=== PATIENT | female | born 1955 | race Caucasian/White ===

== ENCOUNTER 2019-09-10 15:27 | Outpatient (CLI) | payer MEDICAID, SELFPAY ==
--- NOTE | 2019-09-10 15:33 | XR_ITS ---
WS: [id number] LUMBAR SPINE: 3 VIEWS TECHNIQUE: AP, lateral and L5-S1 spot. HISTORY: Pain in lower back. COMPARISON: 01/08/2013 Very slight LEFT convex curvature of the upper lumbar spine. Vertebral body heights are well-maintain ed. No fractures. Pedicles are all identified. Mild facet joint arthropathy at L5-S1. SI joints are symmetric bilaterally. No soft tissue abnormalities. Prior gastric bypass surgery. Splenic granulomata. XR/XR lumbar spine 2-3V* [id number] IMPRESSION: 1. Very mild LEFT convex curvature of the lumbar spine. 2. No fracture. 3. Mild lumbar spondylosis.
== END 2019-09-10 15:28 | disposition home or self-care (01) ==
LOC: WPI 15:32
PROVIDERS: Family Provider Internal Medicine; PCP Internal Medicine; Referring Provider Internal Medicine; Visit Provider Internal Medicine
DX: M47.896 Other spondylosis, lumbar region (principal); M54.5 Low back pain
CPT/HCPCS: 72100

== ENCOUNTER → 2019-09-11 11:44 | Outpatient (BNVA) | payer MEDICAID, SELFPAY | PROVIDERS: Family Provider Internal Medicine; PCP Internal Medicine; Visit Provider Specialist | DX: G43.711 Chronic migraine without aura, intractable, with status migrainosus (principal) | CPT/HCPCS: 64615; J0585 ==

== ENCOUNTER 2019-09-19 08:34 | Outpatient (CLI) | payer MEDICAID, SELFPAY ==
--- NOTE | 2019-09-19 08:37 | MR_ITS ---
WS: [id number] MRI LUMBAR SPINE NONCONTRAST TECHNIQUE: Sagittal T1, T2 and STIR imaging. Axial T1 and T2 imaging. CLINICAL INFORMATION: DEGENERATIVE DISC DISEASE LUMBOSACRAL SPINE W/RADICULOPATHY COMPARISON: None. FINDINGS: Mild lumbar curve. No acute compression. Mild disc bulging L3-L4 and L4-L5. Endplate degenerative ruben nges L4-L5. L1-L2: Normal. L2-L3: Mild annular bulging. Mild facet arthropathy. Small left foraminal protrusion with mild left f oraminal narrowing. Right foramen is patent. L3-L4: Mild annular bulging with mild to moderate facet arthropathy. Spinal canal and foramen are pat ent. L4-L5: Mild disc bulging with narrowing of the left subarticular recess. Encroachment on traversing l eft L5 nerve root. Mild left and no significant right foraminal narrowing. Moderate facet arthropathy . L5-S1: Mild disc bulging with slight effacement of ventral thecal sac. Moderate facet arthropathy. Sp inal canal and foramen are patent. Visualized pelvic bony structures: Normal. Paravertebral soft tissues: Normal. MR/MR lumbar spine wo con* [id number] IMPRESSION: 1. Mild lumbar curve. No acute compression. 2. Mild disc bulging L4-5 with slight narrowing of the left subarticular reces s. Encroachment traversing left L5 nerve root. Mild left foraminal narrowing at this level. 3. Small left foraminal protrusion L2-3 with mild left foraminal narrowing. 4. Mild to moderate facet arthropathy L3-L5.
== END 2019-09-19 08:35 | disposition home or self-care (01) ==
LOC: RADSHAW 08:36
PROVIDERS: Family Provider Internal Medicine; PCP Internal Medicine; Visit Provider Internal Medicine
DX: M51.17 Intervertebral disc disorders with radiculopathy, lumbosacral region (principal); M51.26 Other intervertebral disc displacement, lumbar region
CPT/HCPCS: 72148

== ENCOUNTER → 2020-01-15 11:35 | Outpatient (BNVA) | payer MEDICAID, SELFPAY | PROVIDERS: Family Provider Internal Medicine; PCP Internal Medicine; Visit Provider Specialist | DX: G43.711 Chronic migraine without aura, intractable, with status migrainosus (principal) | CPT/HCPCS: 64615; J0585 ==

== ENCOUNTER 2020-02-13 15:35 | Outpatient (CLI) | payer MEDICAID, SELFPAY ==
--- NOTE | 2020-02-13 | XRR_ITS ---
PROCEDURE INFORMATION: Exam: XR Lumbosacral Spine, 2 or 3 Views Exam date and time: 02/13/2020 3:40 PM Age: 64 years old Clinical indication: Patient HX: Low back pain radiating into right hip; Additional info: Low back pain-please comment on the presence or absence of spinal instability TECHNIQUE: Imaging protocol: XR of the lumbosacral spine, 2 or 3 views. COMPARISON: No relevant prior studies available. FINDINGS: Vertebrae: There is 1st degree spondylolisthesis of the L3-L4 level seen on flexion and neutral positioning. This finding is reduced with extension positioning. Soft tissues: Unremarkable. XR/XR lumbar spine f/e only [id number] IMPRESSION: 1. First degree spondylolisthesis L3-L4 with flexion and neutral position this finding reduced in extension. 2. Otherwise negative examination
== END 2020-02-13 15:36 | disposition home or self-care (01) ==
LOC: RAD 15:37
PROVIDERS: PCP Internal Medicine; Visit Provider Nurse Practitioner
DX: M54.5 Low back pain (principal); M43.16 Spondylolisthesis, lumbar region
CPT/HCPCS: 72120

== ENCOUNTER → 2020-02-17 15:47 | Outpatient (BNVA) | payer MEDICAID, SELFPAY | PROVIDERS: PCP Internal Medicine; Referring Provider Nurse Practitioner Family; Visit Provider Podiatrist Foot & Ankle Surgery | DX: M79.671 Pain in right foot (principal) | CPT/HCPCS: 73630 ==

== ENCOUNTER 2020-03-24 11:04 | Outpatient (CLI) | payer MEDICAID, SELFPAY ==
--- NOTE | 2020-03-24 11:14 | MM_ITS ---
WS: [id number] BILATERAL SCREENING DIGITAL MAMMOGRAM WITH CAD HISTORY: DCIS LEFT BREAST COMPARISON: 01/20/2019, 02/20/2018 and 02/04/2018 Bilateral CC and MLO views submitted. Computer aided detection analyzed. Breast composition: There are scattered areas of fibroglandular density. No suspicious masses, microc alcifications or architectural distortion. Postsurgical site in the LEFT axillary tail is stable. No increase in nodule or calcification. MM/[place] [id number] IMPRESSION: BI-RADS: 2-Benign FOLLOW UP: 1 Year Follow-up
== END 2020-03-24 11:05 | disposition home or self-care (01) ==
LOC: RADSHAW 11:12
PROVIDERS: PCP Internal Medicine; Visit Provider Internal Medicine
DX: D05.12 Intraductal carcinoma in situ of left breast (principal)
CPT/HCPCS: 77066

== ENCOUNTER → 2020-04-08 09:59 | Outpatient (BNVA) | payer MEDICAID, SELFPAY | PROVIDERS: PCP Internal Medicine; Visit Provider Podiatrist Foot & Ankle Surgery | DX: G43.711 Chronic migraine without aura, intractable, with status migrainosus (principal); M77.32 Calcaneal spur, left foot | CPT/HCPCS: 64615; 73630; J0585 ==

== ENCOUNTER 2020-05-13 10:33 | Outpatient (CLI) | payer MEDICAID, SELFPAY ==
--- NOTE | 2020-05-13 10:49 | XR_ITS ---
WS: [id number] RIGHT SHOULDER: 3 VIEW(S) TECHNIQUE: Internal and external rotation with Y view. HISTORY: PAIN IN RIGHT SHOULDER COMPARISON: 06/13/2012 No fracture or dislocation or soft tissue abnormality. Mild narrowing of the AC joint. 5.7 mm osteophyte from the distal inferior clavicle extends towards t he rotator cuff. Increase in size of the osteophytes since the prior study. AC joint is also more stephy row. Benign calcification RIGHT upper lobe. Dense coarse RIGHT paratracheal calcified lymph nodes measure 4.6 x 2.5 cm. XR/XR shoulder RT min 2V* [id number] IMPRESSION: Moderate AC joint arthritis has progressed since 2011. Enlarging 5.7 mm osteophyte along the distal clavicle extends towards the rotat or cuff could be impinging.
== END 2020-05-13 10:34 | disposition home or self-care (01) ==
LOC: RADWPI 10:35
PROVIDERS: PCP Internal Medicine; Visit Provider Internal Medicine
DX: M19.011 Primary osteoarthritis, right shoulder (principal); M25.711 Osteophyte, right shoulder
CPT/HCPCS: 73030

== ENCOUNTER → 2020-06-27 12:19 | Outpatient (BNVA) | payer MEDICAID, SELFPAY | PROVIDERS: PCP Internal Medicine; Visit Provider Emergency Medicine | DX: Z11.59 Encounter for screening for other viral diseases (principal) | CPT/HCPCS: 87635 ==

== ENCOUNTER → 2020-09-09 15:08 | Outpatient (BNVA) | payer MEDICAID, SELFPAY | PROVIDERS: PCP Internal Medicine; Visit Provider Specialist | DX: G43.711 Chronic migraine without aura, intractable, with status migrainosus (principal) | CPT/HCPCS: 64615; J0585 ==

== ENCOUNTER 2020-09-10 14:37 | Emergency (ER) | payer MEDICAID, SELFPAY ==
[2020-09-10 14:44] VITALS: BP 158/100; PULSE 79; RESP 18; TEMP 36.6; O2SAT 98; BMI 29.0
--- NOTE | 2020-09-10 16:01 | W.ED.BACK ---
HPI - Back Pain/Injury General: Chief Complaint: Extremity Injury, Lower Stated Complaint: Lt side pain/ all the way down Time Seen by Provider: 09/10/20 15:41 Source: patient Mode of arrival: ambulatory Limitations: no limitations History of Present Illness: HPI Narrative: Patient is a 65-year-old female who presents to ED today with complaint of left lower back pain. Patient states she has a known history of sciatica pains chronically. She tells me she follows with pain management and normally takes hydrocodone 7.5 mg / 325 mg 3 times daily. Patient tells me a few days ago she had injections to her back as a pre-treatment for possible nerve ablation. Patient tells me she believes they placed a steroid and anesthetic to her back. Patient tells me since injections her back pain has been worse than normal. She states she will occasionally have radicular symptoms into her left lower leg. She is not having any urinary retention or bowel incontinence. No fevers or chills. She has not noticed any redness or warmth overlying the injection site. MD elicited complaint: back pain Pertinent past history: prior back pain Onset (ago): unknown (chronic; worse over the past 2-3 days) Similar Symptoms Previously: Yes Location: left lower back Radiation: left upper leg Exacerbating factors: movement and walking Relieving factors: none Associated symptoms: Reports no associated symptoms; Deny abdominal pain, chills, difficulty walking, fatigue, fever(s), nausea or vomiting Work related injury: No Review of Systems Const: Denies: fever(s), chills, body aches, fatigue or malaise Card: Denies: chest pain Resp: Denies: dyspnea GI: Denies: abdominal pain, nausea or vomiting Musc: Reports: back pain; Denies: neck pain, extremity pain, extremity swelling, joint pain or joint swelling Neuro: Denies: headache(s), numbness in extremities, weakness in extremities, sensory changes or difficulty walking PFS ED PFSH: Medical History (Updated 09/10/20 @ 16:57 by PACO Richards) Fibromyalgia History of muscle spasm Hx of transfusion of whole blood Surgical History History of carpal tunnel surgery of left wrist History of tonsillectomy and adenoidectomy Hx of dilation and curettage Hx of eye surgery Hx of laparoscopic gastric banding Hx of lumpectomy Hx of partial thyroidectomy Hx of sinus surgery Family History Father CAD (coronary artery disease) Hypertension Mother Cancer Social History Smoking and tobacco status: never smoked Alcohol intake: never Current occupational status: disabled History of recent travel: No Physical Exam Const: COMMON NORMALS: no acute distress, average body habitus, patient oriented x3, no limitations, healthy appearing, alert and well nourished : COMMON NORMALS: Yes no CVA tenderness BLADDER/KIDNEY EXAM: Yes no CVA tenderness Back/Pelvis: COMMON NORMALS: no CVA tenderness, thoracic and lumbar spine normal to inspection, no thoracic nor lumbar tenderness and thoraco-lumbar ROM normal THORACIC SPINE/UPPER BACK: Yes normal to inspection and Yes thoracic ROM normal LUMBAR SPINE/LOWER BACK: Yes normal to inspection and Yes lumbar ROM normal PELVIS: Yes sciatic notch tenderness on the left Extremity: COMMON NORMALS: normal to inspection, full ROM, no clubbing, cyanosis or edema, no calf tenderness and no pedal edema Neuro: COMMON NORMALS: patient oriented x3, moves all extremities, no focal motor deficits and no sensory deficits noted SENSORIUM/ORIENTATION: Yes alert Skin: COMMON NORMALS: no rashes or lesions noted GENERAL SKIN EXAM: no rashes or lesions noted Course Vital Signs: Vital signs: Vital Signs Temperature 97.8 F 09/10/20 14:44 Pulse Rate 79 09/10/20 14:44 Respiratory Rate 16 09/10/20 16:36 Blood Pressure 158/100 09/10/20 14:44 Pulse Oximetry 98 09/10/20 14:44 MDM - Back Pain/Injury MDM Narrative: Medical decision making narrative: Patient presents with acute on chronic left-sided sciatica/lower back pain. She has no neurological deficits on her exam. She is currently under a pain management contract. Her pain was treated while in the emergency department. Recommend she contact her pain management provider on Sunday to discuss further treatment. Discharge Plan Discharge Patient Disposition: Home Clinical Impression: Left sided sciatica Condition: Stable Prescriptions: New prednisone 10 mg tablet 60 mg PO DAILY 5 Days Qty: 30 RF: 0 No Action amitriptyline 25 mg tablet 25 mg PO DAILY RF: 0 anastrozole 1 mg tablet 1 mg PO ONCE RF: 0 aspirin [Adult Low Dose Aspirin] 81 mg tablet,delayed release (DR/EC) 81 mg PO ONCE RF: 0 budesonide 0.5 mg/2 mL suspension for nebulization 0.25 mg INHALATION BID RF: 0 calcium carbonate [Calcium 600] 600 mg calcium (1,500 mg) tablet 600 mg PO ONCE RF: 0 cetirizine [All Day Allergy (cetirizine)] 10 mg tablet 10 mg PO ONCE RF: 0 docusate sodium [Colace] 100 mg capsule 100 mg PO BID RF: 0 omega-3 fatty acids [Fish Oil Concentrate] 1,000 mg capsule 1,000 mg PO BID RF: 0 gabapentin 600 mg tablet 600 mg PO BID RF: 0 GenTeal Tears Mild 0.1-0.3 % drops ophthalmic (eye) RF: 0 glucosamine HCl 1,500 mg tablet 1,500 mg PO ONCE RF: 0 liothyronine 5 mcg tablet 5 mcg PO ONCE RF: 0 multivitamin Capsule 1 cap PO QAM RF: 0 pantoprazole 40 mg tablet,delayed release (DR/EC) 40 mg PO ONCE RF: 0 Adult Probiotic 3 billion cell capsule 3,000 mmu cells PO ONCE RF: 0 eletriptan [Relpax] 40 mg tablet 40 mg PO ONCE RF: 0 levothyroxine [Synthroid] 150 mcg tablet 150 mcg PO ONCE RF: 0 tramadol 50 mg tablet 100 mg PO Q6H PRNRF: 0 cholecalciferol (vitamin D3) 10,000 unit capsule 10,000 unit PO ONCE RF: 0 rizatriptan [Maxalt] 10 mg tablet 10 mg PO ONCE RF: 0 alendronate 70 mg tablet 70 mg PO .weekly RF: 0 esomeprazole magnesium 40 mg capsule,delayed release(DR/EC) 40 mg PO ONCE RF: 0 baclofen PO RF: 0 Botox 100 unit recon soln 155 unit SUBCUT ONCE Qty: 2 RF: 0 venlafaxine [Effexor XR] 150 mg capsule,extended release 24hr 150 mg PO QAM Qty: 30 RF: 3 topiramate [Topamax] 50 mg tablet 150 mg PO ONCE Qty: 90 RF: 3 Discharge Orders: Discharge ED (Routine); Ordered 09/10/20 Ordered By: Mariaelena Espino Referrals: Laverne Sosa MD [Primary Care Provider] - Activity Restrictions/Additional Instructions: As discussed I cannot make any changes or add any further controlled medications to your daily hydrocodone and tramadol as you are currently under a pain contract with pain management. Please contact them on Sunday for further instructions. You have been given pain medications while here in the ED. Coding Level of Care Code ED Dual Hose Cementer for Chg Fwd Exam Detailed
[2020-09-10 16:36] VITALS: RESP 16
[2020-09-10] MEDS: morphine 4 mg/mL SDV 1 mL IM (16:36)
[2020-09-10] MEDS: ondansetron 2 mg/ML SDV 2 mL 4 MG IM (16:59)
[2020-09-10] MEDS: orphenadrine 30 mg/mL Inj 2 mL 60 MG IM (17:00)
== END 2020-09-10 17:40 | disposition home or self-care (01) ==
PROVIDERS: Emergency Provider Physician Assistant; PCP Internal Medicine
DX: M54.32 Sciatica, left side (principal); Z79.82 Long term (current) use of aspirin
CPT/HCPCS: 12345; 96372; 96375; 99281; 99283; J2270; J2360; J2405

== ENCOUNTER 2020-09-22 13:06 | Outpatient (CLI) | payer MEDICAID, SELFPAY ==
--- NOTE | 2020-09-22 13:11 | XR_ITS ---
WS: [id number] HIP WITH PELVIS LEFT TECHNIQUE: 3 views of the left hip with pelvis CLINICAL INFORMATION: PAIN IN LEFT HIP COMPARISON: None. FINDINGS: Mild degenerative arthritis left hip with mild joint space narrowing. No acute fractures. Femoral nec k appears normal. Normal left pubic rami. XR/XR hip LT 2-3V wo/w pel* [id number] IMPRESSION: Mild degenerative arthritis left hip. No acute fractures.
== END 2020-09-22 13:07 | disposition home or self-care (01) ==
LOC: RADWPI 13:08
PROVIDERS: PCP Internal Medicine; Visit Provider Internal Medicine
DX: M16.12 Unilateral primary osteoarthritis, left hip (principal)
CPT/HCPCS: 73502

== ENCOUNTER 2020-10-01 07:08 | Outpatient (CLI) | payer MEDICAID, SELFPAY ==
--- NOTE | 2020-10-01 07:11 | MR_ITS ---
WS: [id number] MRI LUMBAR SPINE NONCONTRAST TECHNIQUE: Sagittal T1, T2 and STIR imaging. Axial T1 and T2 imaging. CLINICAL INFORMATION: DEGENERATIVE DISC DISEASE LUMBOSACRAL W/RADICULOPATHY COMPARISON: September 19, 2019 FINDINGS: Mild lumbar curve. No acute compression. No high-grade central canal stenosis. Mild disc bulging wors e L4-5 with endplate degenerative changes. This is similar in appearance to the prior examination. L1-L2: Left foraminal protrusion is new from previous with impingement on the exiting left L1 nerve r oot. Moderate left foraminal narrowing. Right foramen and spinal canal are patent. L2-L3: Normal. L3-L4: Mild annular bulging with slight effacement of ventral thecal sac. Mild central canal stenosis . Mild facet arthropathy. L4-L5: Mild disc bulging eccentric to the left. Impingement traversing left L5 nerve root. Mild centr al canal stenosis. Moderate left foraminal narrowing with impingement on the exiting left L4 nerve ro ot. This is slightly progressed compared to previous. L5-S1: Mild annular bulging. Spinal canal and foramen are patent. Mild facet arthropathy. Visualized pelvic bony structures: Normal. Paravertebral soft tissues: Normal. MR/MR lumbar spine wo con* [id number] IMPRESSION: 1. New prominent left foraminal protrusion L1-2 impinges the exiting left L1 n erve roots.Correlation for left L1 nerve root symptoms. 2. Mild central canal stenosis L3-4. 3. Left eccentric disc bulging L4-5 with impingement on the left subarticular recess and traversing left L5 nerve root. 4. In addition, impingement on the exiting L4 nerve root with moderate left fo raminal narrowing. 5. No other significant changes from previous.
== END 2020-10-01 07:09 | disposition home or self-care (01) ==
LOC: RADSHAW 07:09
PROVIDERS: PCP Internal Medicine; Visit Provider Internal Medicine
DX: M51.17 Intervertebral disc disorders with radiculopathy, lumbosacral region (principal); M51.26 Other intervertebral disc displacement, lumbar region; M48.061 Spinal stenosis, lumbar region without neurogenic claudication
CPT/HCPCS: 72148

== ENCOUNTER 2020-10-13 12:26 | Outpatient (RCR) | payer MEDICAID, SELFPAY | END 2020-10-31 23:59 | disposition home or self-care (01) | LOC: SPT 12:26 | PROVIDERS: PCP Internal Medicine; Referring Provider Internal Medicine; Visit Provider Internal Medicine | DX: G89.29 Other chronic pain (principal); M54.5 Low back pain; M51.17 Intervertebral disc disorders with radiculopathy, lumbosacral region | CPT/HCPCS: 97110; 97161 ==

== ENCOUNTER 2020-10-22 10:40 | Outpatient (CLI) | payer MEDICAID, SELFPAY ==
--- NOTE | 2020-10-22 10:49 | FL_ITS ---
WS: [id number] DOUBLE CONTRAST UPPER GI EXAMINATION HISTORY: R10.9 - Unspecified abdominal pain, history of gastric banding. COMPARISON: None available. FLUOROSCOPY TIME: 3.2 minutes. There is significant constipation and fecal retention. Gastric banding is noted in the LEFT upper briana drant in normal position. Patient swallowed the barium mixture without difficulty. There is moderate distention of the stomach. There are persistent food products within the stomach despite patient being nothing by mouth. There is also mild delay in emptying of the stomach. No reflux was identified during the examination. Small hiatal hernia. Duodenal bulb was normal. FL/FL upper GI w air* [id number] IMPRESSION: 1. Status post gastric banding. The band appears in normal position. 2. Retained food products within the stomach with marked diffuse constipation. 3. Mild delay in emptying of contrast from the stomach. With the food products present in the stomach consider gastroparesis. 4. No gastroesophageal reflux.
== END 2020-10-22 10:41 | disposition home or self-care (01) ==
LOC: RAD 10:42
PROVIDERS: PCP Internal Medicine; Visit Provider Surgery
DX: R10.9 Unspecified abdominal pain (principal)
CPT/HCPCS: 74246

== ENCOUNTER → 2020-10-28 14:32 | Outpatient (BNVA) | payer MEDICAID, SELFPAY | PROVIDERS: PCP Internal Medicine; Visit Provider Surgery | DX: R10.9 Unspecified abdominal pain (principal); Z98.84 Bariatric surgery status | CPT/HCPCS: 87635 ==

== ENCOUNTER 2020-11-01 06:00 | Outpatient (RCR) | payer MEDICAID, SELFPAY | END 2020-12-01 23:59 | disposition home or self-care (01) | LOC: SPT 06:00 | PROVIDERS: PCP Internal Medicine; Referring Provider Internal Medicine; Visit Provider Internal Medicine | DX: M54.5 Low back pain (principal); G89.29 Other chronic pain; M51.17 Intervertebral disc disorders with radiculopathy, lumbosacral region | CPT/HCPCS: 97110 ==

== ENCOUNTER 2020-11-02 08:41 | Day surgery (SDC) | payer MEDICAID, SELFPAY ==
[2020-11-01 15:00] VITALS: BMI 29.0
[2020-11-02] VITALS (8 sets, daily range): BP systolic 96–140; BP diastolic 60–89; PULSE 70–84; RESP 14–18; TEMP 36.1–36.2; O2SAT 90–100
[2020-11-02] MEDS: sodium chloride 0.9% 1,000 ML 30 ML IV (09:39)
--- NOTE | 2020-11-02 10:01 | ANES.PREANE2 ---
Pre-Anesthetic Assessment Pre-Anesthetic Assessment: Height/Weight: Height 1.68 m Weight 81.647 kg Temp Pulse Resp BP Pulse Ox 97 F L 84 18 140/89 98 11/02/20 09:03 11/02/20 09:03 11/02/20 09:03 11/02/20 09:03 11/02/20 09:03 Preop Diagnosis: History of laparoscopic gastric band/Persistent Vomiting Proposed Procedure: Operation Date: 11/02/20 10:15 Proposed Procedures p EGD [id number] R10.9 Z98.84(Not Applicable) - Kendell Steele MD s Laparoscopic Adjustable Gastric Band(Not Applicable) - Kendell Steele MD Familial anesthetic complications: None Was Beta Matheus taken within 24 hours: N/A Last intake: Intake Last Liquid Date 11/01/20 Last Liquid Time 22:00 Last Solid Date 11/01/20 Last Solid Time 22:00 Social: Social History: No alcohol and No tobacco Exam: Pre-Anes Outpt Exam: alert, oriented x 3, clear to auscultation bilaterally and regular rate & rhythm Airway: Cervical ROM: WNL MP: 3 Dentition: Full Pulmonary: Comments: covid positive in june : : Chronic renal Insufficiency (mildy elevated levels due to ibuprofen overuse) GI: GI: GERD Comments: lap gastric band Metabolic: Metabolic: Thyroid Musc/skel: Musc/skel: Fibromyalgia Comments: sciatic (L) nerve injection recently, prefers laying on back or right side down to not exacerbate sciatic nerve Neuropsych: Neuropsych: SMITH Anesthetic Plan: ASA status: 3 Anesthesia: MAC Risk of > 500 ml blood loss (7ml/kg in children): Yes, adequate IV access and fluids planned Meds/Allergies Current Medications: Current Medications Generic Name Dose Route Start Last Admin Trade Name Freq PRN Reason Stop Dose Admin Sodium Chloride 1,000 mls @ 30 ml s/hr 11/02/20 09:00 11/02/20 09:39 Sodium Chloride 0.9% IV 11/03/20 08:59 30 mls/hr .Q24H HUGO Administration PFSH Anesthesia PFSH: Medical History (Updated 09/18/20 @ 00:01 by ) Fibromyalgia History of muscle spasm Hx of transfusion of whole blood Surgical History (Updated 10/15/20 @ 08:34 by Kendell Steele MD) History of carpal tunnel surgery of left wrist History of tonsillectomy and adenoidectomy Hx of dilation and curettage Hx of eye surgery Hx of laparoscopic gastric banding Hx of lumpectomy Hx of partial thyroidectomy Hx of sinus surgery Family History Father CAD (coronary artery disease) Hypertension Mother Cancer Social History Smoking and tobacco status: never smoked Alcohol intake: never Current occupational status: disabled History of recent travel: No Data Anesthesia Cardiac Studies: No Data to Display
--- NOTE | 2020-11-02 10:51 | W.PM.OPSUD ---
Surgery/Procedure H&P Update DATE OF PROCEDURE: November 02, 2020 DATE H&P PERFORMED: 10/14/20 H&P UPDATE INFORMATION: I have reviewed H&P completed within last 30 days, I have examined patient prior to procedure and Changes to prior documentation as noted here CHANGES TO PREVIOUS DOCUMENTATION: Upper GI study showed : IMPRESSION: 1. Status post gastric banding. The band appears in normal position. 2. Retained food products within the stomach with marked diffuse constipation. 3. Mild delay in emptying of contrast from the stomach. With the food products present in the stomach consider gastroparesis. 4. No gastroesophageal reflux. PREOP DIAGNOSIS: History of laparoscopic gastric band/Persistent Vomiting PRIMARY INDICATION FOR PROCEDURE: The same PLANNED PROCEDURE: Operation Date: 11/02/20 10:15 Proposed Procedures p EGD [id number] R10.9 Z98.84(Not Applicable) - Kendell Steele MD s Laparoscopic Adjustable Gastric Band(Not Applicable) - Kendell Steele MD
--- NOTE | 2020-11-02 11:30 | P.OP_ITS ---
Operative Report Date of procedure: November 02, 2020 Pre-op Diagnosis: History of laparoscopic gastric band/Persistent Vomiting Post-op diagnosis: same Post-op Diagnosis: Adjustment of gastric band and removal of 2 mL of fluid Post-op Findings: Prepyloric gastritis Procedure Done: Esophagogastroduodenoscopy with biopsy And adjustment of gastric band Specimens removed/disposition: Biopsy from the gastric antrum for CLOtest Surgeon: Kendell Steele Cut In Station Operator: GI certified surgical assistant Elina Circulating nurse [place] Anesthesia: MAC (Maya Rubio) Estimated blood loss (mL): 1 Condition: stable Disposition: same day Brief History: This is a pleasant 65 years old female patient with history of laparoscopic adjustable gastric band placed elsewhere. Patient was referred to my practice with history of repeated and persistent vomiting with associated GERD symptoms. Upper GI study was done per my request that showed; IMPRESSION: 1. Status post gastric banding. The band appears in normal position. 2. Retained food products within the stomach with marked diffuse constipation. 3. Mild delay in emptying of contrast from the stomach. With the food products present in the stomach consider gastroparesis. 4. No gastroesophageal reflux. After thorough history physical examination reviewing the chart and images with my personal interpretation I did alcohol and drug counselor the patient for EGD and adjustment of gastric band. Full H&P and informed consent per Procedure: Patient was identified in holding area, was taken to the operating room and was placed in supine position IV propofol was infused by the anesthesia provider Time-out was done verifying the patient's name and the procedure, all were in agreement After prep and drape of the upper abdomen under sterile technique, local lidocaine 2% was injected at the site of aspiration followed by a Calzada needle right angled was used to access the port and about 2.5 mL of saline where withdrawn,A Band-Aid was applied onto the site of introduction of the Calzada needle, were no complications. I introduced the EGD via the mouth there was no evidence of band erosion onto the stomach yet there was evidence of prepyloric gastritis and the GE junction was located at 40 cm from the incisors and the band was located at 42 cm. Biopsy was taken from the antrum for CLOtest, the duodenum was intubated first and second parts were within normal limits. There was no evidence of a hiatal hernia yet there was evidence of food bezoar mild in amount at the body and prepyloric area concerning for gastroparesis. Patient tolerated the procedure well And was taken to the recovery area in stable condition I was present for the whole entire procedure
--- NOTE | 2020-11-02 21:33 | ANE.PACU2 ---
Inpatient post-anesthesia follow up: Airway intact: Yes Vital signs: Temperature 97.2 F Pulse Rate 78 Respiratory Rate 18 Blood Pressure 128/70 Pulse Oximetry 97 Oxygen Delivery Me thod Room Air Oxygen Flow Rate 2 Fraction of Inspir ed Oxygen Hydration adequate: Yes Nausea and vomiting: No Pain level: 1 Mental status: Baseline
[2020-11-04 14:31] LABS: H. Pylori / CLO Test Negative
== END 2020-11-02 12:41 | disposition home or self-care (01) ==
PROVIDERS: PCP Internal Medicine; Visit Provider Surgery
PROC: 0DJ08ZZ Inspection of Upper Intestinal Tract, Via Natural or Artificial Opening Endoscopic (ICD-10-PCS; CPT 43235; principal; 2020-11-02 10:15)
PROC: (CPT 43999; 2020-11-02 10:15)
DX: K29.60 Other gastritis without bleeding (principal); Z86.16 Personal history of COVID-19; M79.7 Fibromyalgia; Z82.49 Family history of ischemic heart disease and other diseases of the circulatory system; K21.9 Gastro-esophageal reflux disease without esophagitis
CPT/HCPCS: 43239; 87077; J2704; J7030

== ENCOUNTER 2020-12-02 06:00 | Outpatient (RCR) | payer MEDICAID, SELFPAY | END 2020-12-31 23:59 | disposition home or self-care (01) | LOC: SPT 06:00 | PROVIDERS: PCP Internal Medicine; Referring Provider Internal Medicine; Visit Provider Internal Medicine | DX: M54.5 Low back pain (principal); M51.17 Intervertebral disc disorders with radiculopathy, lumbosacral region | CPT/HCPCS: 97110 ==

== ENCOUNTER → 2020-12-23 14:39 | Outpatient (BNVA) | payer MEDICAID, SELFPAY | PROVIDERS: PCP Internal Medicine; Visit Provider Specialist | DX: G43.711 Chronic migraine without aura, intractable, with status migrainosus (principal) | CPT/HCPCS: 64615; J0585 ==

== ENCOUNTER 2021-01-01 06:00 | Outpatient (RCR) | payer MEDICAID, SELFPAY | END 2021-01-31 23:59 | disposition home or self-care (01) | LOC: SPT 06:00 | PROVIDERS: PCP Internal Medicine; Referring Provider Internal Medicine; Visit Provider Internal Medicine | DX: M54.5 Low back pain (principal); M51.17 Intervertebral disc disorders with radiculopathy, lumbosacral region | CPT/HCPCS: 97110 ==

== ENCOUNTER 2021-02-01 06:00 | Outpatient (RCR) | payer MEDICAID, SELFPAY | END 2021-03-02 23:59 | disposition home or self-care (01) | LOC: SPT 06:00 | PROVIDERS: PCP Internal Medicine; Referring Provider Internal Medicine; Visit Provider Internal Medicine | DX: M54.5 Low back pain (principal); G89.29 Other chronic pain; M51.17 Intervertebral disc disorders with radiculopathy, lumbosacral region | CPT/HCPCS: 97110; G0283 ==

== ENCOUNTER 2021-03-03 06:00 | Outpatient (RCR) | payer MEDICAID, SELFPAY | END 2021-04-02 23:59 | disposition home or self-care (01) | LOC: SPT 06:00 | PROVIDERS: PCP Internal Medicine; Referring Provider Internal Medicine; Visit Provider Internal Medicine | DX: M54.5 Low back pain (principal); G89.29 Other chronic pain | CPT/HCPCS: 97110; G0283 ==

== ENCOUNTER 2021-03-31 12:47 | Outpatient (CLI) | payer MEDICAID, SELFPAY ==
--- NOTE | 2021-03-31 12:56 | MM_ITS ---
WS: [id number] BILATERAL DIGITAL DIAGNOSTIC MAMMOGRAM MAMMOGRAPHY WITH CAD CLINICAL INFORMATION: HX OF BREAST CA COMPARISON: March 24, 2020 TECHNIQUE: Bilateral CC, MLO, and ML views. FINDINGS: Scattered fibroglandular densities bilaterally. Parenchymal parenchymal scarring upper outer left mateus ast is unchanged from previous. Punctate calcifications left breast. A few tiny punctate calcificatio ns adjacent to the parenchymal scarring unchanged from previous. No suspicious focal mass, asymmetry, calcifications, or architectural distortion. No evidence of carmen gnancy. MM/[place] [id number] IMPRESSION: BI-RADS: 2-Benign FOLLOW UP: 1 Year Follow-up Recommend return to annual diagnostic mammography.
== END 2021-03-31 12:48 | disposition home or self-care (01) ==
LOC: RADSHAW 12:48
PROVIDERS: PCP Internal Medicine; Visit Provider Internal Medicine
DX: Z85.3 Personal history of malignant neoplasm of breast (principal)
CPT/HCPCS: 77066

== ENCOUNTER → 2021-07-07 10:29 | Outpatient (BNVA) | payer MEDICAID, SELFPAY | PROVIDERS: PCP Internal Medicine; Visit Provider Specialist | DX: G43.711 Chronic migraine without aura, intractable, with status migrainosus (principal) | CPT/HCPCS: 64615; J0585 ==

== ENCOUNTER 2021-07-21 15:03 | Outpatient (CLI) | payer MEDICAID, SELFPAY ==
[2021-07-21 15:56] LABS: Basophils # 0.1 10^3/uL (0.0-0.1); Eosinophils # 0.3 10^3/uL (0.0-0.8); Eosinophils % 4.8 %; Hematocrit 44.5 % (37.0-47.0); Hemoglobin 14.9 g/dL (11.5-15.3); Lymphocytes # 2.9 10^3/uL (0.8-4.8); Lymphocytes % 43.4 %; Mean Corpuscular HGB Conc 33.5 g/dL (30.0-36.0); Mean Corpuscular Hemoglobin 30.8 pg (28.0-34.0); Mean Corpuscular Volume 91.9 fl (81-99); Mean Platelet Volume 10.4 fL (7.4-10.4); Monocytes # 0.6 10^3/uL (0.2-0.9); Monocytes % 9.4 %; Neutrophils # 2.74 10^3/uL (1.8-7.7); Neutrophils % 41.1 %; Nucleated Red Blood Cells % 0 %; Platelet Count 291 10^3/cmm (130-400); Red Blood Count 4.84 10^6/uL (4.1-5.3); Red Cell Distribution Width 12.9 % (12.1-15.1); White Blood Count 6.7 10^3/uL (4.0-10.0)
[2021-07-21 16:16] LABS: Alanine Aminotransferase 15 U/L (0-33); Albumin Level 4.3 g/dL (3.5-5.2); Alkaline Phosphatase 53 IU/L (35-105); Aspartate Amino Transferase 23 U/L (0-32); Blood Urea Nitrogen 29 mg/dL (8-23); Calcium 9.1 mg/dL (8.5-10.5); Carbon Dioxide 21 mmol/L (22-29); Chloride 104 mmol/L (98-107); Globulin 3.5 g/dL (1.3-4.6); Glomerular Filtration Rate 55.8 mL/min (90-130); Glucose 72 mg/dL (65-115); Osmolality Calculated 292 mOsm/kg (285-295); Sodium 139 mmol/L (136-145); Total Bilirubin 0.4 mg/dL (0.15-1.2); Total Protein 7.8 g/dL (6.6-8.7)
--- NOTE | 2021-07-24 19:06 | ONC FU_ITS ---
Dr. Francois follow up note Patient: Paola Simmons Unit #: [id number]: 1955 Dicatated By: Eduardo Francois M.D.Date of Visit:Jul 21, 2021 Onc Med Follow-up/Prog Note History of Present Illness: Mrs. Paola Simmons, is a 66-year-old female with history of left breast mass underwent mammogram on 01/21/2018 which showed BI-RADS 4B suspicious lesion for which she was referred to surgery and on 02/28/2018 she underwent excisional biopsy of left breast mass which showed microscopic focus of residual DCIS with necrosis and with clear surgical margin and tumor was estrogen receptor positive. Status post postlumpectomy radiation therapy, started on Arimidex 1 mg by mouth daily 03/14/2018 along with vitamin D and calcium supplement DEXA scan done on 09/10/2018 showed spinal and proximal femur bone mineral densities within the range of osteopenia, 10 year probability of a major osteoporotic fracture is 21.5% and for hip fracture 2.3% Fosamax 70 mg by mouth per week was added on 01/15/2019 She has history of fibromyalgia Mammogram done on 01/20/2019 showed BI-RADS 2, benign Follow-up mammogram done on March 31, 2021 shows BI-RADS 2, benign tolerating Arimidex well Came for follow-up, denies any specific complaints, no fever chills, no nausea or vomiting, no diarrhea or constipation, no new bony pains, occasionally hot flashes otherwise tolerating Arimidex along with vitamin D and calcium supplement well Medications: 1Fish Oil Oral t.i.d., Acetaminophen Capsule Oral, Alendronate Sodium 1 Tablet (of 70 mg) Oral q 7 days, Amitriptyline HCl 1 Tablet (of 25 mg) Oral at bedtime, Aspirin 1 Tablet (of 81 mg) Oral daily, Budesonide 1 puff(s) (of 0.5 mg/2mL) Suspension Inhalation daily, Calcium 1 Tablet (of 600 mg) Oral daily, Cetirizine HCl 1 Tablet (of 10 mg) Oral b.i.d., Cholecalciferol 1 Tablet (of 1000 Units) Oral daily, Colace 1 Capsule (of 100 mg) Oral b.i.d., Cyclobenzaprine HCl 1 Tablet (of 10 mg) Oral t.i.d., Effexor XR 1 Capsule (of 150 mg) Capsule SR 24 HR Oral daily, Gabapentin 1 Tablet (of 300 mg) Oral t.i.d., GenTeal Mild 2 drop(s) (of 0.2 %) Solution Ophthalmic PRN, Glucosamine HCl 1 Tablet (of 1500 mg) Oral daily, Liothyronine Sodium 2 Tablet (of 5 mcg) Oral daily, Multi Vitamin/Minerals Oral daily, Pantoprazole Sodium 1 Tablet (of 40 mg) Tablet, enteric coated Oral daily, Probiotic 1 Capsule Oral daily, Rizatriptan Benzoate 1 Tablet Oral PRN, Synthroid 1 Tablet (of 150 mcg) Oral daily, Topamax 1 Tablet (of 50 mg) Oral t.i.d., traMADol HCl 1 Tablet (of 50 mg) Oral four times a day, Venlafaxine HCl ER 1 Tablet (of 150 mg) Tablet SR 24 HR Oral daily, Vision Formula 2 1 Tablet Oral daily Allergies: Penicillins and Sulfa Antibiotics. Review of Systems: Review of Systems is not available for this patient. Vital Signs: Performed on Jul 21, 2021 16:47 Height - 66.00 in Weight - 187.6 lbs (HIGH) BSA - 1.95 sq.m BMI - 30.28 (HIGH) Temperature - 96.6 F (LOW) Pulse - 84 /min Respiration - 20 /min BP - 145/86 mm(hg) (HIGH) O2 Sat - 97 % Pain - 3 Fatigue - 2 Performance Status: 0 - Fully active, able to carry on all predisease activities without restrictions. (ECOG) Physical Examination: Respiratory - Lungs are clear to auscultation, Cardiovascular - Regular rate and rhythm of heart, Gastrointestinal - Soft, bowel sounds present, Extremities - No visible edema. Lab/Imaging: Most recent lab results are not available for this patient. 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 10 year probability of major osteoporotic fracture is 21.5%. Patient is on vitamin D and calcium supplement, Fosamax 70 mg by mouth once a week was added on 01/15/2019 Plan: Discussed with patient regarding her labs white blood count 6.7 hemoglobin 14.9 hematocrit 44.5 platelets 291,000 CMP within normal limits, her follow-up mammogram also shows no abnormality Clinically, patient doing well with no new signs symptoms history of recurrence of disease, tolerating Arimidex/vitamin D/calcium well, her follow-up mammogram shows benign findings, will Continue with same and continue to monitor she will return to clinic in 6 months Signed By: Eduardo Francois M.D. <<Signature on File>>
== END 2021-07-21 15:04 | disposition home or self-care (01) ==
PROVIDERS: PCP Internal Medicine; Visit Provider Internal Medicine Hematology & Oncology
DX: C50.812 Malignant neoplasm of overlapping sites of left female breast (principal); Z17.0 Estrogen receptor positive status [ER+]; Z79.811 Long term (current) use of aromatase inhibitors; E55.9 Vitamin D deficiency, unspecified; M79.7 Fibromyalgia; M81.0 Age-related osteoporosis without current pathological fracture; Z79.899 Other long term (current) drug therapy
CPT/HCPCS: 36415; 80053; 85025; 99214

== ENCOUNTER → 2021-09-29 10:52 | Outpatient (BNVA) | payer MEDICAID, SELFPAY | PROVIDERS: PCP Internal Medicine; Visit Provider Specialist | DX: G43.711 Chronic migraine without aura, intractable, with status migrainosus (principal) | CPT/HCPCS: 64615; J0585 ==

== ENCOUNTER → 2021-12-29 12:40 | Outpatient (BNVA) | payer MEDICAID, SELFPAY | PROVIDERS: PCP Internal Medicine; Visit Provider Specialist | DX: G43.711 Chronic migraine without aura, intractable, with status migrainosus (principal) | CPT/HCPCS: 64615; J0585 ==

== ENCOUNTER → 2022-01-26 13:37 | Outpatient (BNVA) | payer MEDICAID, SELFPAY | PROVIDERS: PCP Internal Medicine; Visit Provider Podiatrist Foot & Ankle Surgery | DX: L60.3 Nail dystrophy (principal); M20.41 Other hammer toe(s) (acquired), right foot; M20.42 Other hammer toe(s) (acquired), left foot | CPT/HCPCS: 99213 ==

== ENCOUNTER 2022-02-14 07:11 | Outpatient (CLI) | payer MEDICAID, SELFPAY ==
--- NOTE | 2022-02-14 | US_ITS ---
WS: [email or web address] TRANSVAGINAL PELVIC ULTRASOUND HISTORY: ABDOMINAL BLOATING COMPARISON: None available. Uterus: 6.8 cm x 3.8 cm x 2.4 cm. Atrophic anteverted uterus. There is a hypoechoic area in the poste rior lower uterine segment toward the endocervical junction measuring 1.4 x 1.2 x 1.8 cm. This does a but the posterior surface of the lower endocervical portion of the endometrium with mild displacement . Endometrium: 0.4 cm. Normal. Neither ovary is identified. No adnexal mass. No free fluid in the cul-de-sac. US/US transvaginal [id number] IMPRESSION: 1. Hypoechoic mass in the posterior endocervical segment. Mass measures 1.4 x 1.2 x 1.8 cm. This may be a small fibroid. Recommend close imaging follow-up to be sure this does not increase in size and extent into the endocervical segmen t. Early neoplasm is not excluded. 2. Neither ovary identified.
== END 2022-02-14 07:12 | disposition home or self-care (01) ==
LOC: RAD 07:12
PROVIDERS: PCP Internal Medicine; Visit Provider Internal Medicine
DX: R14.0 Abdominal distension (gaseous) (principal); N88.8 Other specified noninflammatory disorders of cervix uteri
CPT/HCPCS: 76830

== ENCOUNTER 2022-02-15 14:02 | Oncology outpatient (recurring) (ONCR) | payer MEDICAID, SELFPAY | END 2022-03-02 23:59 | disposition home or self-care (01) | LOC: ONCMED 14:06 | PROVIDERS: PCP Internal Medicine; Visit Provider Internal Medicine Hematology & Oncology | DX: Z53.9 Procedure and treatment not carried out, unspecified reason (principal) ==

== ENCOUNTER → 2022-04-13 13:27 | Outpatient (BNVA) | payer MEDICARE, MEDICAID, SELFPAY | PROVIDERS: PCP Internal Medicine; Visit Provider Specialist | DX: G43.711 Chronic migraine without aura, intractable, with status migrainosus (principal) | CPT/HCPCS: 64615; J0585 ==

== ENCOUNTER → 2022-04-25 18:14 | Outpatient (BNVA) | payer MEDICARE, MEDICAID, SELFPAY | PROVIDERS: PCP Internal Medicine; Visit Provider Registered Nurse Neonatal Intensive Care | DX: R10.9 Unspecified abdominal pain (principal) | CPT/HCPCS: 81000 ==

== ENCOUNTER 2022-04-27 12:24 | Outpatient (CLI) | payer MEDICARE, MEDICAID, SELFPAY ==
--- NOTE | 2022-04-27 12:36 | XR_ITS ---
WS: [email or web address] KUB, AP view, 04/27/2022 Clinical Data: ABDOMINAL MASS/LOWER ABD PAIN Comparison: None. Findings: No abnormal intraabdominal masses are are seen. There is no dilatated small bowel or evidence of obst ruction. There are left upper quadrant calcifications which may be in the spleen. There is an infusion device overlying the left side of the abdomen. There is a large amount of fecal material throughout the colo n. There is a dextroscoliosis of the lumbar spine. XR/XR KUB [id number] Impression: Large amount of fecal material in the colon.
== END 2022-04-27 12:25 | disposition home or self-care (01) ==
LOC: RAD 12:27
PROVIDERS: PCP Internal Medicine; Visit Provider Nurse Practitioner Family
DX: R19.00 Intra-abdominal and pelvic swelling, mass and lump, unspecified site (principal); R10.30 Lower abdominal pain, unspecified
CPT/HCPCS: 74018

== ENCOUNTER 2022-04-27 12:30 | Outpatient (CLI) | payer MEDICARE, MEDICAID, SELFPAY ==
--- NOTE | 2022-04-27 12:52 | MM_ITS ---
WS: [email or web address] BILATERAL 3D TOMOSYNTHESIS DIGITAL DIAGNOSTIC MAMMOGRAPHY WITH CAD CLINICAL INFORMATION: HX OF BREAST CA HISTORY: Bilateral breast soreness COMPARISON: March 31, 2021 TECHNIQUE: Bilateral CC, MLO, and ML views. FINDINGS: Scattered fibroglandular densities bilaterally. Stable post lumpectomy changes upper outer LEFT breas t with parenchymal scarring. This is unchanged from previous. Incidental punctate calcification LEFT breast. No suspicious focal mass, asymmetry, calcifications, or architectural distortion. No evidence of malignancy. MM/[place] [id number] IMPRESSION: BI-RADS: 2-Benign FOLLOW UP: 1 Year Follow-up Recommend return to annual diagnostic mammography.
== END 2022-04-27 12:31 | disposition home or self-care (01) ==
LOC: RAD 12:31
PROVIDERS: PCP Internal Medicine; Visit Provider Internal Medicine
DX: Z85.3 Personal history of malignant neoplasm of breast (principal)
CPT/HCPCS: 76830; 77062

== ENCOUNTER → 2022-07-13 14:09 | Outpatient (BNVA) | payer MEDICARE, MEDICAID, SELFPAY | PROVIDERS: PCP Internal Medicine; Visit Provider Specialist | DX: G43.711 Chronic migraine without aura, intractable, with status migrainosus (principal) | CPT/HCPCS: 64615; 95911; J0585 ==

== ENCOUNTER → 2022-07-31 08:16 | Outpatient (BNVA) | payer MEDICARE, MEDICAID, SELFPAY | PROVIDERS: PCP Internal Medicine; Visit Provider Podiatrist Foot & Ankle Surgery | DX: M20.41 Other hammer toe(s) (acquired), right foot (principal); L85.1 Acquired keratosis [keratoderma] palmaris et plantaris; M20.42 Other hammer toe(s) (acquired), left foot; L60.3 Nail dystrophy; M19.072 Primary osteoarthritis, left ankle and foot | CPT/HCPCS: 17110; 73630; 99213 ==

== ENCOUNTER → 2022-10-31 14:45 | Outpatient (BNVA) | payer MEDICARE, MEDICAID, SELFPAY | PROVIDERS: PCP Internal Medicine; Visit Provider Podiatrist Foot & Ankle Surgery | DX: M20.41 Other hammer toe(s) (acquired), right foot (principal); M20.42 Other hammer toe(s) (acquired), left foot; L60.3 Nail dystrophy; M19.071 Primary osteoarthritis, right ankle and foot; L85.1 Acquired keratosis [keratoderma] palmaris et plantaris | CPT/HCPCS: 99213 ==

== ENCOUNTER 2022-11-21 14:30 | Outpatient (CLI) | payer MEDICARE, MEDICAID, SELFPAY | END 2022-11-21 14:31 | disposition home or self-care (01) | LOC: SLEEP 11-22 14:57 | PROVIDERS: PCP Internal Medicine; Visit Provider Internal Medicine | DX: G47.10 Hypersomnia, unspecified (principal) | CPT/HCPCS: G0399 ==

== ENCOUNTER 2023-01-25 12:39 | Oncology outpatient (recurring) (ONCR) | payer MEDICARE, MEDICAID, SELFPAY ==
[2023-01-25] VITALS (11 sets, daily range): BP systolic 133–145; BP diastolic 80–100; PULSE 78; RESP 16; TEMP 35.9–36.3; O2SAT 98–99
[2023-01-25] MEDS: diphenhydrAMINE 50 mg/mL SDV 1mL 25 MG IVP (13:37)
[2023-01-25] MEDS: ondansetron 2 mg/ML SDV 2 mL 4 MG IVP (13:37)
[2023-01-25] MEDS: dihydroergotamine 1 mg/mL Inj 0.5 MG IVP ×5 (13:53→16:03)
[2023-01-25] MEDS: valproic acid inj 500 MG in sodium chloride 0.9% 50 ML 55 MG IV (16:00)
[2023-01-25] MEDS: sodium chloride 0.9% (100 ml) 100 ML 30 ML (16:44)
[2023-01-25] MEDS: ketorolac 30 mg/mL INJ IVP (17:13)
--- NOTE | 2023-01-25 17:48 | PC.NURSE ---
Patient's blood pressure was elevated at discharge. She is to monitor it at home and go to the emergency room if it does not start going down. with patient to transport her home upon discharge.
== END 2023-01-31 23:59 | disposition home or self-care (01) ==
PROVIDERS: PCP Internal Medicine; Visit Provider Specialist
DX: G43.711 Chronic migraine without aura, intractable, with status migrainosus (principal)
CPT/HCPCS: 96365; 96375; 96376; J1110; J1200; J1885; J2405; J3490

== ENCOUNTER 2023-02-08 17:03 | Outpatient (CLI) | payer MEDICARE, MEDICAID, SELFPAY ==
--- NOTE | 2023-02-08 17:30 | XR_ITS ---
WS: [email or web address] Right knee, 3 views, 02/08/2023 Clinical Data: pain in right knee Comparison: Bilateral knees, left knee, 12/24/2013 Findings: No fractures or dislocations are seen. There is minimal medial joint compartment narrowing. The poste rior patella shows minimal spurs. The soft tissues are unremarkable. XR/XR knee RT 3V* [id number] Impression: Minimal osteoarthritic change with medial joint compartment narrowing and poste rior right patellar spurring Kellgren-Jose Classification: grade 1 (doubtful): doubtful joint space narr owing and possible osteophytic lipping
== END 2023-02-08 17:04 | disposition home or self-care (01) ==
PROVIDERS: PCP Internal Medicine; Visit Provider Nurse Practitioner Family
DX: M17.11 Unilateral primary osteoarthritis, right knee (principal)
CPT/HCPCS: 73562

== ENCOUNTER → 2023-02-15 14:29 | Outpatient (BNVA) | payer MEDICARE, MEDICAID, SELFPAY | PROVIDERS: PCP Internal Medicine; Visit Provider Specialist | DX: G43.711 Chronic migraine without aura, intractable, with status migrainosus (principal) | CPT/HCPCS: 64615; J0585 ==

== ENCOUNTER 2023-02-21 08:28 | Outpatient (CLI) | payer MEDICARE, MEDICAID, SELFPAY ==
--- NOTE | 2023-02-21 08:44 | MR_ITS ---
WS: [id number] MRI RIGHT KNEE HISTORY: R KNEE PAIN COMPARISON: Radiographs 02/08/2023 Anterior cruciate ligament: Mild intrasubstance degeneration. No full-thickness tear. Posterior cruciate ligament: Mild intrasubstance degeneration with no tear. Medial collateral ligament: Mild displacement from the joint line and mild adjacent fluid. No full-th ickness tear. Posterior lateral corner structures: Intact. Medial menisci: Mild intrasubstance degeneration. Mild fraying along the surfaces but no full-thickne ss tear. Lateral meniscus: Mild intrasubstance degeneration with no tear. Extensor mechanism: Distal quadriceps tendon and patellar tendons are intact. Fluid and soft tissue: Small joint effusion. No Rucker's cyst. Osseous and articular structures: Patellofemoral compartment: Diffuse loss of cartilage involving the patellar articular surfaces. Mild narrowing of the joint space. No fracture or marrow edema. Medial compartment: Moderate narrowing of the medial compartment with loss of cartilage. Loss of cart ilage along the weightbearing surfaces with the additional osteochondral lesion involving the weightb earing surface of the femoral condyle. Diameter is approximately 13 mm. There is a large amount of ma rrow edema in the medial femoral condyle extending towards the intercondylar notch. Additional edema extends along the medial joint line adjacent to the MCL. Lateral compartment: Mild narrowing of the lateral compartment with thinning and fissuring of the car tilage. Focal loss of cartilage along the weightbearing surface of the femoral condyle towards the in tercondylar notch. Significant fraying of the cartilage and the adjacent meniscus but no definite tea r. MR/MR knee RT wo con* [id number] IMPRESSION: 1. Osteochondral lesion weightbearing surface medial femoral condyle measures 13 mm. Large amount of associated marrow edema in the medial femoral condyle. 2. Additional soft tissue edema between the medial femoral condyle and the MCL . This edema may be reactive from the humeral process in the femoral condyle or related to mild synovitis. 3. Intrasubstance degeneration within the menisci with fraying along the artic ular surfaces but no tears. 4. Diffuse loss of cartilage involving the patella. 5. Moderate narrowing medial compartment with chondromalacia.
== END 2023-02-21 08:29 | disposition home or self-care (01) ==
PROVIDERS: PCP Internal Medicine; Visit Provider Internal Medicine
DX: M25.561 Pain in right knee (principal); R60.0 Localized edema; M94.261 Chondromalacia, right knee; M93.261 Osteochondritis dissecans, right knee
CPT/HCPCS: 73721

== ENCOUNTER → 2023-02-26 09:16 | Outpatient (BNVA) | payer MEDICARE, MEDICAID, SELFPAY | PROVIDERS: PCP Internal Medicine; Referring Provider Nurse Practitioner Family; Visit Provider Specialist | DX: M17.11 Unilateral primary osteoarthritis, right knee (principal) | CPT/HCPCS: 20610; 73560; 73565; 99204; J1100; J2795; J3301 ==

== ENCOUNTER 2023-06-07 14:16 | Outpatient (CLI) | payer MEDICARE, SELFPAY ==
--- NOTE | 2023-06-07 14:24 | MM_ITS ---
WS: [email or web address] BILATERAL 3D TOMOSYNTHESIS DIGITAL DIAGNOSTIC MAMMOGRAPHY WITH CAD CLINICAL INFORMATION: ANNUAL - HX BR CA HISTORY: LEFT breast lumpectomy. Pain scar site. COMPARISON: 04/27/2022 TECHNIQUE: Bilateral CC, MLO, and ML views. FINDINGS: Scattered fibroglandular densities bilaterally. Prior postoperative changes LEFT lumpectomy with pare nchymal scarring similar to previous. Ultrasound of this area is pending. A few punctate calcificatio ns in the anterior LEFT breast. RIGHT breast is unchanged and unremarkable. ULTRASOUND BREAST LEFT TECHNIQUE: Ultrasound left breast focused area of concern. CLINICAL INFORMATION: ANNUAL - HX BR CA COMPARISON: None. FINDINGS: Ultrasound LEFT breast in the area of pain at the lumpectomy site. Shadowing fibrous tissue at the compa mpectomy site. No cystic or solid lesion to target for biopsy. No suspicious findings. IMPRESSION: MM/[place] [id number] BI-RADS: 2-Benign FOLLOW UP: 1 Year Follow-up Recommend return to annual diagnostic mammography.
--- NOTE | 2023-06-07 15:02 | US_ITS ---
WS: [email or web address] BILATERAL 3D TOMOSYNTHESIS DIGITAL DIAGNOSTIC MAMMOGRAPHY WITH CAD CLINICAL INFORMATION: ANNUAL - HX BR CA HISTORY: LEFT breast lumpectomy. Pain scar site. COMPARISON: 04/27/2022 TECHNIQUE: Bilateral CC, MLO, and ML views. FINDINGS: Scattered fibroglandular densities bilaterally. Prior postoperative changes LEFT lumpectomy with pare nchymal scarring similar to previous. Ultrasound of this area is pending. A few punctate calcificatio ns in the anterior LEFT breast. RIGHT breast is unchanged and unremarkable. ULTRASOUND BREAST LEFT TECHNIQUE: Ultrasound left breast focused area of concern. CLINICAL INFORMATION: ANNUAL - HX BR CA COMPARISON: None. FINDINGS: Ultrasound LEFT breast in the area of pain at the lumpectomy site. Shadowing fibrous tissue at the compa mpectomy site. No cystic or solid lesion to target for biopsy. No suspicious findings. IMPRESSION: US/US breast LT limited* [id number] BI-RADS: 2-Benign FOLLOW UP: 1 Year Follow-up Recommend return to annual diagnostic mammography.
== END 2023-06-07 14:17 | disposition home or self-care (01) ==
PROVIDERS: PCP Internal Medicine; Visit Provider Internal Medicine
DX: Z85.3 Personal history of malignant neoplasm of breast (principal); N64.4 Mastodynia; L90.5 Scar conditions and fibrosis of skin
CPT/HCPCS: 76642; 77062; G0279

== ENCOUNTER → 2023-06-14 11:42 | Outpatient (BNVA) | payer MEDICARE, SELFPAY | PROVIDERS: PCP Internal Medicine; Visit Provider Specialist | DX: G43.711 Chronic migraine without aura, intractable, with status migrainosus (principal) | CPT/HCPCS: 64615; J0585 ==

== ENCOUNTER 2023-07-31 13:18 | Outpatient (CLI) | payer MEDICARE, SELFPAY ==
--- NOTE | 2023-07-31 13:21 | XR_ITS ---
WS: [email or web address] SCREENING DEXA SCAN [facility] CLINICAL INFORMATION: ASYMPTOMATIC POSTMENOPAUSAL STATUS COMPARISON: None. FINDINGS: The L1-L4 bone mineral density measures 0.968 g/cm2. This corresponds to a T score score of -1.8 and Z score of -1.0. Left femoral neck bone mineral density measures 0.694 g/cm2. This corresponds to a T score of -2.5 an d Z score of -1.8. Right femoral neck bone mineral density measures 0.790 g/cm2. This corresponds to a T score -1.7of an d Z score of -1.1. Mean femoral neck bone mineral density measures 0.742 g/cm2. This corresponds to a T score of -2.1 an d Z score of -1.5. IMPRESSION: Osteopenia lumbar spine. Osteopenia femoral necks. Patient's FRAX calculated 10 year probability for major osteoporotic fracture is 24.0% and osteoporot ic hip fracture is 4.2%. Bone mineralization lumbar spine increased 7.2% Bone mineralization femoral necks increased 1.0%
== END 2023-07-31 13:19 | disposition home or self-care (01) ==
LOC: RAD 13:18
PROVIDERS: PCP Internal Medicine; Visit Provider Internal Medicine
DX: Z78.0 Asymptomatic menopausal state (principal); M85.89 Other specified disorders of bone density and structure, multiple sites
CPT/HCPCS: 77080

== ENCOUNTER → 2023-09-10 10:14 | Outpatient (BNVA) | payer MEDICARE, SELFPAY | PROVIDERS: PCP Internal Medicine; Visit Provider Nurse Practitioner | DX: M17.12 Unilateral primary osteoarthritis, left knee | CPT/HCPCS: 20610; 99214; J1100; J2795; J3301 ==

== ENCOUNTER → 2023-09-20 13:08 | Outpatient (BNVA) | payer MEDICARE, SELFPAY | PROVIDERS: PCP Internal Medicine; Visit Provider Specialist | DX: G43.711 Chronic migraine without aura, intractable, with status migrainosus (principal) | CPT/HCPCS: 64615; J0585 ==

== ENCOUNTER 2023-10-26 07:46 | Outpatient (CLI) | payer MEDICARE, SELFPAY ==
--- NOTE | 2023-10-26 07:58 | US_ITS ---
WS: [email or web address] US pelvic complete* [id number] HISTORY: ACUTE PELVIC PAIN/VAGINAL DISCHARGE COMPARISON: None available. Uterus: 6.6 cm x 2.3 cm x 3.6 cm. Anteverted uterus. There is a bulging and slight change in echogenicity along the posterior lower nikhil rine segment. Change in echogenicity measures 1.7 x 1.9 x 1.3 cm most consistent with a fibroid. Ther e is mild bulging of the contour of the uterus. Similar compared to 04/27/2022. Small nabothian cysts towards the cervix. Endometrium: 0.2 cm. Thin atrophic endometrium. Right ovary: Not visualized. Left ovary: 1.4 cm x 1.1 cm x 0.7 cm. Normal size and vascularity, no cystic or solid masses. No free fluid in the cul-de-sac. IMPRESSION: 1. No significant change in the suspected fibroid along the lower posterior uterine segment since . 2. Thin atrophic endometrium. 3. RIGHT ovary not visualized.
--- NOTE | 2023-10-26 07:58 | US_ITS ---
WS: [email or web address] Complete ABDOMINAL ULTRASOUND HISTORY: ACUTE FEMALE PELVIC PAIN COMPARISON: None available. Liver: 15.3 cm in length. Normal size liver and echogenicity. No bile duct dilatation or mass. Portal Vein: Normal hepatopetal flow with monophasic waveform. Gallbladder: Normally distended gallbladder with no stones or wall thickening. CBD: 0.4 cm Pancreas: Head and tail are not well visualized. The body is negative. Right kidney: 11.3 cm x 4.3 x 4.1 cm. Cortex:0.8 cm. Normal size kidney. Possible cortical cyst with a maximal diameter of 8 mm mid kidney. Left kidney: 9.0 cm x 4.1 cm x 4.1 cm. Cortex: 1.1 cm. Normal size and echogenicity. No hydronephrosis or mass. Spleen: Normal. Aorta and IVC: Unremarkable abdominal aorta and IVC. Impression: 1. Normal gallbladder. 2. No bile duct dilatation. 3. Poorly visualized pancreas. 4. No renal obstruction. Subcentimeter cortical cyst RIGHT kidney.
== END 2023-10-26 07:47 | disposition home or self-care (01) ==
LOC: RAD 07:51
PROVIDERS: PCP Internal Medicine; Visit Provider Nurse Practitioner Family
DX: R10.2 Pelvic and perineal pain (principal); N89.8 Other specified noninflammatory disorders of vagina; N28.1 Cyst of kidney, acquired
CPT/HCPCS: 76700; 76856

== ENCOUNTER → 2024-01-01 14:42 | Outpatient (BNVA) | payer MEDICARE, SELFPAY | PROVIDERS: PCP Internal Medicine; Visit Provider Dermatology | DX: L57.0 Actinic keratosis (principal); L82.0 Inflamed seborrheic keratosis; D18.01 Hemangioma of skin and subcutaneous tissue; L82.1 Other seborrheic keratosis; L91.8 Other hypertrophic disorders of the skin; L81.7 Pigmented purpuric dermatosis; I83.92 Asymptomatic varicose veins of left lower extremity; L73.8 Other specified follicular disorders; M79.3 Panniculitis, unspecified | CPT/HCPCS: 17000; 17110; 99213 ==

== ENCOUNTER → 2024-01-23 15:00 | Outpatient (BNVA) | payer MEDICARE, SELFPAY | PROVIDERS: PCP Internal Medicine; Visit Provider Specialist | DX: M17.0 Bilateral primary osteoarthritis of knee (principal) | CPT/HCPCS: 20610; 73560; 73565; J1100; J2795; J3301 ==

== ENCOUNTER → 2024-01-24 15:43 | Outpatient (BNVA) | payer MEDICARE, SELFPAY | PROVIDERS: PCP Internal Medicine; Visit Provider Specialist | DX: G43.711 Chronic migraine without aura, intractable, with status migrainosus (principal) | CPT/HCPCS: 64615; J0585 ==

== ENCOUNTER → 2024-05-29 11:39 | Outpatient (BNVA) | payer MEDICARE, SELFPAY | PROVIDERS: PCP Internal Medicine; Visit Provider Specialist | DX: G43.711 Chronic migraine without aura, intractable, with status migrainosus (principal) | CPT/HCPCS: 64615; J0585 ==

== ENCOUNTER 2024-07-03 15:00 | Outpatient (CLI) | payer MEDICARE, SELFPAY ==
--- NOTE | 2024-07-03 15:01 | MM_ITS ---
WS: [email or web address] BILATERAL 3D TOMOSYNTHESIS DIGITAL DIAGNOSTIC MAMMOGRAPHY WITH CAD CLINICAL INFORMATION: MAMMOGRAM YEARLY HISTORY: DCIS LEFT breast with history of radiation COMPARISON: 06/07/2023 TECHNIQUE: Bilateral CC, MLO, and ML views. FINDINGS: Scattered fibroglandular densities bilaterally. Prior postoperative changes lumpectomy LEFT breast wi th parenchymal scarring similar to previous. A few incidental punctate calcifications anterior LEFT b reast. No suspicious focal mass, asymmetry, calcifications, or architectural distortion. No evidence of carmen gnancy. MM/MM diag BI tomosynthesis [id number] IMPRESSION: DENSITY: There are scattered areas of fibroglandular density. BI-RADS: 2 - Benign. FOLLOW UP: 1 Year Follow-up Recommend return to annual diagnostic mammography.
== END 2024-07-03 15:01 | disposition home or self-care (01) ==
PROVIDERS: PCP Internal Medicine; Visit Provider Internal Medicine
DX: Z12.31 Encounter for screening mammogram for malignant neoplasm of breast (principal); R92.323 Mammographic fibroglandular density, bilateral breasts; Z98.890 Other specified postprocedural states; N64.89 Other specified disorders of breast
CPT/HCPCS: 77062; G0279

== ENCOUNTER → 2024-07-24 14:04 | Outpatient (BNVA) | payer MEDICARE, SELFPAY | PROVIDERS: PCP Internal Medicine; Visit Provider Specialist | DX: M17.0 Bilateral primary osteoarthritis of knee (principal); Z71.89 Other specified counseling | CPT/HCPCS: 20610; J1100; J2795; J3301 ==

== ENCOUNTER → 2024-09-04 14:57 | Outpatient (BNVA) | payer MEDICARE, SELFPAY | PROVIDERS: PCP Internal Medicine; Visit Provider Nurse Practitioner Family | DX: L81.4 Other melanin hyperpigmentation (principal); D23.9 Other benign neoplasm of skin, unspecified; D18.01 Hemangioma of skin and subcutaneous tissue; M79.3 Panniculitis, unspecified; I83.93 Asymptomatic varicose veins of bilateral lower extremities; L57.8 Other skin changes due to chronic exposure to nonionizing radiation; L82.0 Inflamed seborrheic keratosis; L53.8 Other specified erythematous conditions; L29.89 Other pruritus; R20.8 Other disturbances of skin sensation | CPT/HCPCS: 17110; 99213 ==

== ENCOUNTER → 2024-09-05 11:58 | Outpatient (BNVA) | payer MEDICARE, SELFPAY | PROVIDERS: PCP Internal Medicine; Visit Provider Specialist | DX: G43.711 Chronic migraine without aura, intractable, with status migrainosus (principal) | CPT/HCPCS: 64615; J0585 ==

== ENCOUNTER 2024-10-01 14:56 | Oncology outpatient (recurring) (ONCR) | payer MEDICARE, SELFPAY ==
[2024-10-01 17:00] LABS: Basophils # 0.1 10^3/uL (0.0-0.1); Basophils % 1.3 %; Eosinophils # 0.3 10^3/uL (0.0-0.8); Eosinophils % 4.9 %; Hematocrit 45.2 % (36-47); Lymphocytes # 2.7 10^3/uL (0.8-4.8); Lymphocytes % 38.4 %; Mean Corpuscular HGB Conc 31.9 g/dL (30-55); Mean Corpuscular Hemoglobin 30.4 pg (27-33); Mean Corpuscular Volume 95.4 fl (85-98); Mean Platelet Volume 9.9 fL (7.4-10.4); Monocytes # 0.7 10^3/uL (0.2-0.9); Monocytes % 9.6 %; Neutrophils # 3.14 10^3/uL (1.8-7.7); Neutrophils % 45.5 %; Nucleated Red Blood Cells % 0 %; Platelet Count 284 10^3/cmm (157-399); Red Blood Count 4.74 10^6/uL (3.85-5.65); Red Cell Distribution Width 13.6 % (12.1-15.1)
[2024-10-01 17:23] LABS: Alanine Aminotransferase 19 U/L (0-33); Alkaline Phosphatase 57 U/L (35-105); Anion Gap 14.2 (5-19); Aspartate Amino Transferase 23 U/L (0-32); Blood Urea Nitrogen 20 mg/dL (8-23); Calcium 9.7 mg/dL (8.5-10.5); Carbon Dioxide 25 mmol/L (22-29); Chloride 105 mmol/L (98-107); Creatinine Clr Calc Pharmacy 77.3014; Globulin 3.3 g/dL (1.3-4.6); Glomerular Filtration Rate 71.5 mL/min (90-130); Glucose 86 mg/dL (65-115); Osmolality Calculated 292 mOsm/kg (285-295); Potassium 4.2 mmol/L (3.5-5.1); Sodium 140 mmol/L (136-145); Total Bilirubin 0.3 mg/dL (0.15-1.2); Total Protein 7.3 g/dL (6.6-8.7)
[2024-10-01 18:00] LABS: Lactate Dehydrogenase 221 U/L (135-214)
== END 2024-10-03 23:59 | disposition home or self-care (01) ==
PROVIDERS: PCP Internal Medicine; Visit Provider Internal Medicine
DX: D05.12 Intraductal carcinoma in situ of left breast (principal); M79.7 Fibromyalgia; M85.89 Other specified disorders of bone density and structure, multiple sites; Z79.811 Long term (current) use of aromatase inhibitors; Z79.899 Other long term (current) drug therapy; Z92.3 Personal history of irradiation
CPT/HCPCS: 36415; 80053; 83615; 85025; 99213

== ENCOUNTER → 2025-01-23 10:12 | Outpatient (BNVA) | payer MEDICARE, SELFPAY | PROVIDERS: PCP Internal Medicine; Visit Provider Specialist | DX: M17.0 Bilateral primary osteoarthritis of knee (principal) | CPT/HCPCS: 20610; J1100; J2795; J3301; J9999 ==

== ENCOUNTER → 2025-03-05 10:50 | Outpatient (BNVA) | payer MEDICARE, SELFPAY | PROVIDERS: PCP Internal Medicine; Visit Provider Podiatrist Foot & Ankle Surgery | DX: M79.672 Pain in left foot (principal); M20.41 Other hammer toe(s) (acquired), right foot; M20.42 Other hammer toe(s) (acquired), left foot; M19.072 Primary osteoarthritis, left ankle and foot | CPT/HCPCS: 73630; 99213 ==

== ENCOUNTER → 2025-07-17 11:08 | Outpatient (BNVA) | payer MEDICARE, SELFPAY | PROVIDERS: PCP Internal Medicine; Visit Provider Specialist | DX: M17.0 Bilateral primary osteoarthritis of knee (principal) | CPT/HCPCS: 20610; J1100; J2795; J3301; J9999 ==

== ENCOUNTER → 2025-07-23 13:41 | Outpatient (BNVA) | payer MEDICARE, SELFPAY | PROVIDERS: PCP Internal Medicine; Visit Provider Specialist | DX: G43.711 Chronic migraine without aura, intractable, with status migrainosus (principal) | CPT/HCPCS: 64615; J0585; J9999 ==